=== PATIENT | male | born 1970 | race African-American/Black ===

== ENCOUNTER 2017-05-06 15:09 | Emergency (ER) | payer OTHER ==
[2017-05-06] MEDS ORDERED: Ketorolac 60 MG/2 ML SDV IM ONE (15:52)
--- NOTE | 2017-05-06 16:51 | EDM.PDOC ---
ED HPI GENERAL MEDICAL PROBLEM - General Chief Complaint: General Stated Complaint: LT KNEE HURTS Time Seen by Provider: 05/06/17 15:41 Source of Information: Reports: Patient History Limitations: Reports: No Limitations - History of Present Illness INITIAL COMMENTS - FREE TEXT/NARRATIVE: HISTORY AND PHYSICAL: []47-year-old male presents after having slipped on the ice yesterday twisted to not fall onto his back and twisted his knee portion History of Present Illness: []States the knee has decreased slightly in the swelling but pain level is there and he needs to walk Review of Systems: As per history of present illness and below otherwise all systems reviewed and negative. Past medical history: As per history of present illness and as reviewed below otherwise noncontributory. Surgical history: As per history of present illness and as reviewed below otherwise noncontributory. Social history: No reported history of drug or alcohol abuse. Family history: As per history of present illness and as reviewed below otherwise noncontributory. Physical exam: Alert and oriented male answering questions appropriately in full sentences without any shortness of breath no open areas are noted HEENT: Atraumatic, normocehpalic, pupils reactive, negative for conjunctival pallor or scleral icterus, mucous membranes moist, throat clear, neck supple, nontender, trachea midline. Lungs: Clear to auscultation, breath sounds equal bilaterally, chest non tender. Heart: S1S2, regular, negative for clicks, rubs, or JVD. Abdomen: Soft, nondistended, nontender. Negative for masses or hepatossplenmegaly. Negative for costovertebral tenderness. Pelvis: Stable nontender. Genitourinary: Deferred. Rectal: Deferred Extremities: Left knee is exquisitely tender with palpation notes heat radiating he can move his ankle and foot without much difficulty bending her thumb due to the edema. negative for cords or calf pain. Neurovascular unremarkable. Neuro: Awake, alert, oriented. Cranial nerves II through XII unremarkable. Cerebellum unremarkable. Motor and sensory unremarkable throughout. Exam nonfocal. X-ray does not show any acute fracture there is some soft tissue swelling Diagnostics: [X-ray left knee] Therapeutics: []Toradol IM Knee immobilizer Crutches Impression: [Contusion left knee injury] Plan: []Discharge to home Follow up with orthopedic care next week Dr. Melva Casey [facility] Professional Building [address] [facility], [address] [place] [address] Prescription for diclofenac has been given Primary care clinic: [facility] [address] [place] [address] [id number] Definitive disposition and diagnosis as appropriate pending reevaluation and review of above. Onset: Sudden Duration: Day(s): (1), Getting Worse Location: Reports: Lower Extremity, Right Quality: Reports: Stabbing, Throbbing Severity: Moderate Improves with: Reports: None Worsens with: Reports: None Treatments MECH[employer]IC [employer] W[employer]DER: Reports: NSAIDS Left Knee Pain Score (Numeric/FACES): 9 - Related Data Allergies Allergy/AdvReac Type Severity Reaction Status Date / Time No Known Allergies Allergy Verified 05/06/17 15:31 Home Meds: Home Meds . [No Known Home Meds] 05/06/17 [History] Past Medical History HEENT History: Reports: Retinal Detachment - Infectious Disease History Infectious Disease History: Reports: Chicken Pox - Past Surgical History HEENT Surgical History: Reports: Detached Retina, Eye Surgery, Other (See Below) Other HEENT Surgeries/Procedures: Right eye retina surgery and "metal plate put in bottom jaw" GI Surgical History: Reports: Appendectomy Social & Family History - Family History Family Medical History: Noncontributory - Tobacco Use Smoking Status *Q: Never Smoker - Caffeine Use Caffeine Use: Reports: Tea - Recreational Drug Use Recreational Drug Use: No ED ROS GENERAL - Review of Systems Review Of Systems: ROS reveals no pertinent complaints other than HPI. ED EXAM, GENERAL - Physical Exam Exam: See Below (see dictation) Course - Vital Signs Last Recorded V/S: Last Vital Signs Temp 36.7 C 05/06/17 15:21 Pulse 100 05/06/17 15:21 Resp 18 05/06/17 15:21 BP 148/84 H 05/06/17 15:21 Pulse Ox 95 05/06/17 15:21 - Orders/Labs/Meds Orders: Active Orders 24 hr Category Date Time Status Knee 3V Lt [CR] Stat Exams 05/06/17 15:46 Taken Meds: Medications Discontinued Medications Generic Name Dose Route Start Last Admin Trade Name Elizabeth PRN Reason Stop Dose Admin Ketorolac Tromethamine 60 mg 05/06/17 15:52 05/06/17 16:01 Toradol IM 05/06/17 15:53 60 mg ONETIME ONE Administration Departure - Departure Time of Disposition: 16:54 Disposition: Home, Self-Care 01 Condition: Good Clinical Impression: Pain of left knee after injury - Discharge Information Instructions: Knee Pain, Adult Referrals: PCP,None [Primary Care Provider] - Additional Instructions: The following information is given to patients seen in the emergency department who are being discharged to home. This information is to outline your options for follow-up care. We provide all patients seen in our emergency department with a follow-up referral. The need for follow-up, as well as the timing and circumstances, are variable depending upon the specifics of your emergency department visit. If you don't have a primary care physician on staff, we will provide you with a referral. We always advise you to contact your personal physician following an emergency department visit to inform them of the circumstance of the visit and for follow-up with them and/or the need for any referrals to a consulting specialist. The emergency department will also refer you to a specialist when appropriate. This referral assures that you have the opportunity for followup care with a specialist. All of these measure are taken in an effort to provide you with optimal care, which includes your followup. Under all circumstances we always encourage you to contact your private physician who remains a resource for coordinating your care. When calling for followup care, please make the office aware that this follow-up is from your recent emergency room visit. If for any reason you are refused follow-up, please contact the [facility] emergency department at and asked to speak to the emergency department charge nurse. Your knee injury does not show a fracture Immobilizer is been placed please use this and crutches nonweightbearing No working for the next week and note has been given Diclofenac prescription has been issued Follow up with orthopedic care in [address] Melva Casey [facility] Professional Building [address] [facility], [address] [place] [address] Establish with primary care [facility] [address] [place] [address] [place] [address] - My Orders Last 24 Hours: My Active Orders 05/06/17 15:46 Knee 3V Lt [CR] Stat - Assessment/Plan Last 24 Hours: My Active Orders 05/06/17 15:46 Knee 3V Lt [CR] Stat
--- NOTE | 2017-05-07 16:06 | CR ---
EXAM DATE: 05/06/17 PATIENT'S AGE: 47 Patient: RICH OWENS Facility: [place], [place] Site . Site : 1970 Study: XRay Knee Left [id number] 4:18:16 PM Ordering Physician: Doctor Calvin Final Report: TECHNIQUE: Three views of the left knee. INDICATION: Pain. FINDINGS: Soft tissue swelling around the left knee. No acute fracture or dislocation. No significant degenerative change. Dictated by Ricardo Sellers MD @ 05/06/2017 4:28:18 PM Dictated by: Ricardo Sellers MD @ 05/06/2017 16:28:21 (Electronic Signature) Report Signed by Proxy. [email or web address]
== END 2017-05-06 17:09 | disposition home or self-care (01) ==
LOC: MW.ED 15:09
DX: S80.02XA Contusion of left knee, initial encounter (principal); X50.1XXA Overexertion from prolonged static or awkward postures, initial encounter
CPT/HCPCS: 73562; 96372; 99283; J1885